=== PATIENT | male | born 1995 | race Caucasian/White ===

== ENCOUNTER 2017-12-06 09:42 | Emergency (ER) | payer SELFPAY ==
[~2017-12-06] VITALS: Ht 182.9 cm; Wt 84.1 kg
[2017-12-06 09:50] VITALS: BP 139/88; PULSE 80; TEMP 97.3
[2017-12-06] MEDS ORDERED: AMOXICILLIN 8751 TAB PO (10:03)
[2017-12-06] MEDS ORDERED: NORCO 325 MG-51 TAB PO (10:03)
== END 2017-12-06 10:14 | disposition home or self-care (01) ==
LOC: COL.ER 09:42
DX: K11.20 Sialoadenitis, unspecified (principal)

== ENCOUNTER 2018-11-16 19:09 | Emergency (ER) | payer SELFPAY ==
[~2018-11-16] VITALS: Ht 182.9 cm; Wt 83.2 kg
[~2018-11-16 19:09] MED LIST: AMOXICILLIN 8751 TAB PO; NORCO 325 MG-51 TAB PO
[2018-11-16 19:16] VITALS: TEMP 97.7
[2018-11-16 20:39] LABS: BASO # 0.1 (0.0-0.2); BASO % 0.7 % (0.0-2.0); EOS # 0.1 (0.0-0.7); EOS % 1.2 % (0-4.0); GRAN # 6.8 (1.4-6.5); GRAN % 78.5 % (42.2-75.2); HEMATOCRIT 48.8 % (42.0-52.0); HEMOGLOBIN 15.8 g/dl (13.5-18.0); LYMPH # 1.2 (1.2-3.4); MEAN CELL VOLUME 89 fl (80.0-100.0); MEAN CORPUSCULAR HEMOGLOBIN 29 pg (27.0-31.0); MEAN CORPUSCULAR HGB CONC 32 g/dl (33.0-37.0); MEAN PLATELET VOLUME 13.1 fl (7.4-10.4); MONO # 0.5 (0.1-0.6); MONO % 5.4 % (1.7-9.3); PLATELET COUNT 185 K/mm3 (130-400); RED BLOOD COUNT 5.47 M/mm3 (4.20-5.60); REDCELL DISTRIBUTION WIDTH-CV 12.4 % (11.5-14.5)
[2018-11-16 20:52] LABS: ALBUMIN 4.2 gm/dL (3.5-5.0); BILIRUBIN,TOTAL 0.9 mg/dL (0.0-1.0); C-REACTIVE PROTEIN 2.3 mg/dL (0.0-0.9); CALCIUM 9.1 mg/dL (8.4-10.2); CREATININE, serum 0.81 (0.66-1.25); POTASSIUM 3.8 mmol/L (3.4-5.0)
[2018-11-16] MEDS ORDERED: CEPHALEXIN500 M1 PO (21:09)
[2018-11-16 21:32] VITALS: BP 122/78; PULSE 78
== END 2018-11-16 21:33 | disposition home or self-care (01) ==
LOC: COL.ER 19:09
PROVIDERS: Emergency Medicine
DX: J02.9 Acute pharyngitis, unspecified (principal); R11.10 Vomiting, unspecified
CPT/HCPCS: J2405; J7030

== ENCOUNTER 2019-05-07 04:47 | Emergency (ER) | payer SELFPAY ==
[~2019-05-07] VITALS: Wt 90.9 kg
[~2019-05-07 04:47] MED LIST changes: +CEPHALEXIN500 M1 PO
[2019-05-07 05:05] LABS: BASO # 0.1 (0.0-0.2); BASO % 1.1 % (0.0-2.0); EOS # 0.2 (0.0-0.7); EOS % 2.3 % (0-4.0); GRAN # 4.6 (1.4-6.5); GRAN % 62.2 % (42.2-75.2); HEMATOCRIT 47.9 % (42.0-52.0); HEMOGLOBIN 15.9 g/dl (13.5-18.0); LYMPH % 26.6 % (20.0-51.0); MEAN CELL VOLUME 87 fl (80.0-100.0); MEAN CORPUSCULAR HEMOGLOBIN 29 pg (27.0-31.0); MEAN CORPUSCULAR HGB CONC 33 g/dl (33.0-37.0); MEAN PLATELET VOLUME 13.1 fl (7.4-10.4); MONO # 0.6 (0.1-0.6); MONO % 7.5 % (1.7-9.3); PLATELET COUNT 200 K/mm3 (130-400); RED BLOOD COUNT 5.51 M/mm3 (4.20-5.60); REDCELL DISTRIBUTION WIDTH-CV 12.4 % (11.5-14.5)
[2019-05-07 05:18] LABS: ALANINE AMINOTRANSFERASE 41 U/L (21-72); ALBUMIN 4.6 gm/dL (3.5-5.0); ALKALINE PHOSPHATASE 70 U/L (50-136); ANION GAP 11 mmol/L (7-16); AST,SGOT 25 U/L (15-37); BILIRUBIN,TOTAL 0.8 mg/dL (0.0-1.0); BLOOD UREA NITROGEN 13 mg/dL (9-20); C-REACTIVE PROTEIN < 0.5 mg/dL (0.0-0.9); CALCIUM 8.6 mg/dL (8.4-10.2); CARBON DIOXIDE 27 mmol/L (22-30); CHLORIDE 105 mmol/L (98-107); CREATININE, serum 0.75 (0.66-1.25); GLUCOSE 115 mg/dL (74-106); LIPASE 65 U/L (23-300); POTASSIUM 3.9 mmol/L (3.4-5.0); SODIUM 143 mmol/L (137-145)
[2019-05-07 06:09] LABS: COLLECTION METHOD CLEAN CATCH
[2019-05-07 06:14] LABS: MUCOUS Present /lpf; PH 7 (5-8); SQUAMOUS EPITHELIAL 0-2 /hpf; URINE APPEARANCE Clear; URINE BACTERIA None Seen /hpf; URINE BILIRUBIN Negative (NEGATIVE); URINE BLOOD Negative (NEGATIVE); URINE COLOR Yellow; URINE GLUCOSE Negative (NEGATIVE); URINE KETONE Negative (NEGATIVE); URINE LEUKOCYTE ESTERASE Negative (NEGATIVE); URINE NITRATE Negative (NEGATIVE); URINE PROTEIN(semi-quant) Negative (NEGATIVE); URINE UROBILINOGEN Negative (NEGATIVE)
[2019-05-07] MEDS ORDERED: ZOFRAN ODT4 MG PO (07:32)
[2019-05-07] MEDS ORDERED: PHENERGAN 25 TA25 MG PO (07:32)
[2019-05-07] MEDS ORDERED: AMOXICILLIN 50500 MG PO (07:32)
[2019-05-07 08:15] VITALS: BP 140/92; PULSE 89; TEMP 97.7
== END 2019-05-07 08:15 | disposition home or self-care (01) ==
LOC: COL.ER 04:47
PROVIDERS: Emergency Medicine
DX: K08.89 Other specified disorders of teeth and supporting structures (principal); R10.31 Right lower quadrant pain
CPT/HCPCS: J1885; J2405; J7030; Q9967

== ENCOUNTER 2019-05-07 21:02 | Emergency (ER) | payer SELFPAY ==
[~2019-05-07] VITALS: Ht 182.9 cm; Wt 88.2 kg
[~2019-05-07 21:02] MED LIST changes: +AMOXICILLIN 50500 MG PO; +PHENERGAN 25 TA25 MG PO; +ZOFRAN ODT4 MG PO
[2019-05-07 21:08] VITALS: BP 144/93; TEMP 97.8
[2019-05-07 22:30] VITALS: PULSE 80
== END 2019-05-07 22:30 | disposition home or self-care (01) ==
LOC: COL.ER 21:02
DX: K08.89 Other specified disorders of teeth and supporting structures (principal)

== ENCOUNTER 2019-06-03 02:35 | Emergency (ER) | payer SELFPAY ==
[~2019-06-03] VITALS: Ht 182.9 cm; Wt 81.8 kg
[2019-06-03 03:18] LABS: HEMATOCRIT 46.7 % (42.0-52.0); HEMOGLOBIN 15.4 g/dl (13.5-18.0); MEAN CELL VOLUME 88 fl (80.0-100.0); MEAN CORPUSCULAR HEMOGLOBIN 29 pg (27.0-31.0); MEAN CORPUSCULAR HGB CONC 33 g/dl (33.0-37.0); MEAN PLATELET VOLUME 13.3 fl (7.4-10.4); PLATELET COUNT 163 K/mm3 (130-400); RED BLOOD COUNT 5.31 M/mm3 (4.20-5.60); REDCELL DISTRIBUTION WIDTH-CV 12.6 % (11.5-14.5)
[2019-06-03 03:26] LABS: ALBUMIN 4.3 gm/dL (3.5-5.0); BILIRUBIN,TOTAL 1.1 mg/dL (0.0-1.0); CALCIUM 8.8 mg/dL (8.4-10.2); CREATININE, serum 0.69 (0.66-1.25); POTASSIUM 4.1 mmol/L (3.4-5.0); TOTAL PROTEIN 7.6 gm/dL (6.4-8.2)
[2019-06-03 03:46] LABS: BAND 17 % (0-10); EOSINOPHIL 1 % (0-4); LYMPHOCYTE 3 % (20.0-51.0); NEUTROPHILS 77 % (42.0-75.2)
[2019-06-03 03:47] LABS: PLATELET ESTIMATE NORMAL (NORMAL)
[2019-06-03 04:38] LABS: COLLECTION METHOD CLEAN CATCH
[2019-06-03 04:43] LABS: MUCOUS Present /lpf; PH 8 (5-8); SQUAMOUS EPITHELIAL None Seen /hpf; URINE APPEARANCE Clear; URINE BACTERIA None Seen /hpf; URINE BILIRUBIN Negative (NEGATIVE); URINE BLOOD Negative (NEGATIVE); URINE COLOR Yellow; URINE GLUCOSE Negative (NEGATIVE); URINE KETONE Negative (NEGATIVE); URINE LEUKOCYTE ESTERASE Negative (NEGATIVE); URINE NITRATE Negative (NEGATIVE); URINE PROTEIN(semi-quant) Negative (NEGATIVE); URINE RBC 0-2 /hpf; URINE UROBILINOGEN Negative (NEGATIVE)
[2019-06-03] MEDS ORDERED: FLAGYL500 MG PO (06:06)
[2019-06-03] MEDS ORDERED: CIPRO 500MG TA500 MG PO (06:06)
[2019-06-03 06:35] VITALS: BP 123/84; PULSE 118; TEMP 98.6
== END 2019-06-03 06:35 | disposition home or self-care (01) ==
LOC: COL.ER 02:35
PROVIDERS: Emergency Medicine
DX: K52.9 Noninfective gastroenteritis and colitis, unspecified (principal)
CPT/HCPCS: J2765; J3010; J7120; Q9967

== ENCOUNTER 2019-10-02 09:40 | Emergency (ER) | payer SELFPAY ==
[~2019-10-02] VITALS: Ht 193 cm; Wt 89.5 kg
[~2019-10-02 09:40] MED LIST changes: +CIPRO 500MG TA500 MG PO; +FLAGYL500 MG PO
[2019-10-02 09:48] VITALS: BP 134/78; TEMP 98.1
[2019-10-02] MEDS ORDERED: PROAIR HFA0.09 MG/AC IH (11:07)
[2019-10-02 11:16] VITALS: PULSE 86
== END 2019-10-02 11:17 | disposition home or self-care (01) ==
LOC: COL.ER 09:40
DX: J45.998 Other asthma (principal)

== ENCOUNTER 2019-12-14 11:09 | Emergency (ER) | payer BC ==
[~2019-12-14] VITALS: Ht 172.7 cm; Wt 79.5 kg
[~2019-12-14 11:09] MED LIST changes: +PROAIR HFA0.09 MG/AC IH
[2019-12-14 11:39] VITALS: TEMP 97.1
[2019-12-14 12:14] LABS: COLLECTION METHOD CLEAN CATCH
[2019-12-14 12:22] LABS: BASO # 0.1 (0.0-0.2); BASO % 0.8 % (0.0-2.0); EOS # 0.1 (0.0-0.7); EOS % 1.7 % (0-4.0); GRAN # 4.9 (1.4-6.5); GRAN % 67.3 % (42.2-75.2); HEMATOCRIT 44.9 % (42.0-52.0); HEMOGLOBIN 15.1 g/dl (13.5-18.0); LYMPH # 1.7 (1.2-3.4); LYMPH % 23.7 % (20.0-51.0); MEAN CELL VOLUME 87 fl (80.0-100.0); MEAN CORPUSCULAR HEMOGLOBIN 29 pg (27.0-31.0); MEAN CORPUSCULAR HGB CONC 34 g/dl (33.0-37.0); MEAN PLATELET VOLUME 13.3 fl (7.4-10.4); MONO # 0.5 (0.1-0.6); MONO % 6.2 % (1.7-9.3); PLATELET COUNT 170 K/mm3 (130-400); RED BLOOD COUNT 5.18 M/mm3 (4.20-5.60); REDCELL DISTRIBUTION WIDTH-CV 12.5 % (11.5-14.5)
[2019-12-14 12:26] LABS: MUCOUS Present /lpf; PH 6 (5-8); SQUAMOUS EPITHELIAL None Seen /hpf; URINE APPEARANCE Hazy; URINE BACTERIA None Seen /hpf; URINE BILIRUBIN Negative (NEGATIVE); URINE BLOOD 1+ (NEGATIVE); URINE COLOR Yellow; URINE GLUCOSE Negative (NEGATIVE); URINE KETONE Negative (NEGATIVE); URINE LEUKOCYTE ESTERASE Negative (NEGATIVE); URINE NITRATE Negative (NEGATIVE); URINE PROTEIN(semi-quant) Negative (NEGATIVE); URINE UROBILINOGEN Negative (NEGATIVE)
[2019-12-14 12:37] LABS: ALANINE AMINOTRANSFERASE 36 U/L (4-49); ALBUMIN 4.3 gm/dL (3.5-5.0); ALKALINE PHOSPHATASE 84 U/L (50-136); ANION GAP 8 mmol/L (7-16); AST,SGOT 29 U/L (15-37); BILIRUBIN,TOTAL 1.3 mg/dL (0.0-1.0); BLOOD UREA NITROGEN 17 mg/dL (9-20); CALCIUM 9.1 mg/dL (8.4-10.2); CARBON DIOXIDE 25 mmol/L (22-30); CHLORIDE 102 mmol/L (98-107); CREATININE, serum 0.73 (0.66-1.25); GLUCOSE 105 mg/dL (74-106); POTASSIUM 3.9 mmol/L (3.4-5.0); SODIUM 136 mmol/L (137-145); TOTAL PROTEIN 7.6 gm/dL (6.4-8.2)
[2019-12-14 13:02] LABS: C-REACTIVE PROTEIN < 0.5 mg/dL (0.0-0.9)
[2019-12-14 13:30] VITALS: BP 134/94; PULSE 81
== END 2019-12-14 13:40 | disposition home or self-care (01) ==
LOC: COL.ER 11:09
PROVIDERS: Physician Assistant
DX: R55 Syncope and collapse (principal)
CPT/HCPCS: J7030

== ENCOUNTER 2019-12-26 22:33 | Emergency (ER) | payer BC ==
[~2019-12-26] VITALS: Ht 172.7 cm; Wt 87.9 kg
[2019-12-26 23:09] VITALS: BP 134/83; TEMP 97.9
[2019-12-27 00:13] LABS: STREP SCREEN NEGATIVE
[2019-12-27] MEDS ORDERED: FLONASE NASAL S16 GM NS (00:19)
[2019-12-27 00:30] VITALS: PULSE 84
== END 2019-12-27 00:30 | disposition home or self-care (01) ==
LOC: COL.ER 22:33
PROVIDERS: Physician Assistant
DX: J02.9 Acute pharyngitis, unspecified (principal)

== ENCOUNTER 2020-02-28 21:13 | Emergency (ER) | payer BC ==
[~2020-02-28] VITALS: Ht 182.9 cm; Wt 81.8 kg
[~2020-02-28 21:13] MED LIST changes: +FLONASE NASAL S16 GM NS
[2020-02-28 21:19] VITALS: TEMP 97.7
[2020-02-28] MEDS ORDERED: PROAIR HFA0.09 MG/AC IH (22:15)
[2020-02-28] MEDS ORDERED: PREDNISONE20 MG PO (22:15)
[2020-02-28 22:45] VITALS: BP 128/79; PULSE 89
== END 2020-02-28 22:47 | disposition home or self-care (01) ==
LOC: COL.ER 21:13
DX: J45.909 Unspecified asthma, uncomplicated (principal); Z79.51 Long term (current) use of inhaled steroids
CPT/HCPCS: J7512

== ENCOUNTER 2020-08-01 12:14 | Emergency (ER) | payer BC ==
[~2020-08-01] VITALS: Ht 182.9 cm; Wt 72.7 kg
[~2020-08-01 12:14] MED LIST changes: +PREDNISONE20 MG PO
[2020-08-01 12:53] VITALS: BP 131/72; TEMP 98.4
[2020-08-01 14:48] VITALS: PULSE 97
== END 2020-08-01 14:49 | disposition home or self-care (01) ==
LOC: COL.ER 12:14
DX: B34.9 Viral infection, unspecified (principal); R00.0 Tachycardia, unspecified; J45.909 Unspecified asthma, uncomplicated; Z20.822 Contact with and (suspected) exposure to COVID-19

== ENCOUNTER 2020-12-02 19:54 | Emergency (ER) | payer BC ==
[~2020-12-02] VITALS: Ht 172.7 cm; Wt 81.8 kg
[2020-12-02 23:26] VITALS: BP 124/84; PULSE 87; TEMP 98.5
== END 2020-12-02 23:26 | disposition home or self-care (01) ==
LOC: COL.ER 19:54
DX: R11.2 Nausea with vomiting, unspecified (principal); J45.909 Unspecified asthma, uncomplicated; Z20.822 Contact with and (suspected) exposure to COVID-19; Z79.52 Long term (current) use of systemic steroids

== ENCOUNTER 2021-02-07 10:41 | Emergency (ER) | payer BC ==
[~2021-02-07] VITALS: Ht 182.9 cm; Wt 81.8 kg
[2021-02-07 10:59] VITALS: BP 140/93; PULSE 89; TEMP 97.7
[2021-02-07] MEDS ORDERED: TRIAM OI 15 0.025 TOP (11:26)
== END 2021-02-07 11:38 | disposition home or self-care (01) ==
LOC: COL.ER 10:41
DX: S30.863A Insect bite (nonvenomous) of scrotum and testes, initial encounter (principal); S70.362A Insect bite (nonvenomous), left thigh, initial encounter; S30.861A Insect bite (nonvenomous) of abdominal wall, initial encounter; R11.2 Nausea with vomiting, unspecified; J45.909 Unspecified asthma, uncomplicated; W57.XXXA Bitten or stung by nonvenomous insect and other nonvenomous arthropods, initial encounter

== ENCOUNTER 2021-04-11 12:55 | Emergency (ER) | payer BC ==
[~2021-04-11] VITALS: Ht 182.9 cm; Wt 90.9 kg
[~2021-04-11 12:55] MED LIST changes: +TRIAM OI 15 0.025 TOP
[2021-04-11 13:16] VITALS: BP 145/81; TEMP 98.3
[2021-04-11] MEDS ORDERED: ALBUTEROL0.83 MG/ML IH (15:29)
[2021-04-11] MEDS ORDERED: PREDNISONE20 MG PO (15:29)
[2021-04-11] MEDS ORDERED: PROAIR HFA0.09 MG/AC IH (15:29)
[2021-04-11 16:10] VITALS: PULSE 96
== END 2021-04-11 16:12 | disposition home or self-care (01) ==
LOC: COL.ER 12:55
DX: J45.901 Unspecified asthma with (acute) exacerbation (principal); Z20.822 Contact with and (suspected) exposure to COVID-19
CPT/HCPCS: J7512

== ENCOUNTER 2021-05-06 12:17 | Emergency (ER) | payer BC ==
[~2021-05-06] VITALS: Ht 182.9 cm; Wt 85.9 kg
[~2021-05-06 12:17] MED LIST changes: +ALBUTEROL0.83 MG/ML IH
[2021-05-06 12:49] VITALS: TEMP 98.7
[2021-05-06] MEDS ORDERED: PREDNISONE20 MG PO (14:43)
[2021-05-06 14:48] VITALS: BP 130/84; PULSE 84
== END 2021-05-06 14:50 | disposition home or self-care (01) ==
LOC: COL.ER 12:17
DX: J45.909 Unspecified asthma, uncomplicated (principal); Z20.822 Contact with and (suspected) exposure to COVID-19; Z79.899 Other long term (current) drug therapy
CPT/HCPCS: J7512

== ENCOUNTER 2024-02-24 10:43 | Emergency (ER) | payer BC ==
[~2024-02-24] VITALS: Ht 182.9 cm; Wt 87.3 kg
[2024-02-24 10:53] VITALS: TEMP 97.9
[2024-02-24] MEDS ORDERED: Ketorolac 15 MG/ML VIAL IV ONE ×2 (11:15→14:30)
[2024-02-24] MEDS ORDERED: Ondansetron 4 MG/2 ML VIAL IV ONE (11:15)
[2024-02-24] MEDS ORDERED: NS 1,000 ML IV ONE (11:15)
[2024-02-24 11:18] LABS: COLLECTION METHOD CLEAN CATCH
[2024-02-24 11:26] LABS: PH 8.5 (5.0-8.5); URINE APPEARANCE CLOUDY (CLEAR/HAZY); URINE BLOOD 3+ (NEGATIVE); URINE COLOR YELLOW (YELLOW); URINE GLUCOSE NEGATIVE (NEGATIVE); URINE KETONE NEGATIVE (NEGATIVE); URINE NITRATE NEGATIVE (NEGATIVE); URINE PROTEIN(semi-quant) 1+ (NEGATIVE)
[2024-02-24 11:39] LABS: HEMATOCRIT 46.8 % (42.0-52.0); HEMOGLOBIN 15.5 g/dl (13.5-18.0); MEAN CELL VOLUME 88 fl (80.0-100.0); MEAN CORPUSCULAR HEMOGLOBIN 29 pg (27-31); MEAN CORPUSCULAR HGB CONC 33 g/dl (33.0-37.0); MEAN PLATELET VOLUME 12.6 fl (7.4-10.4); PLATELET COUNT 195 K/mm3 (130-400); RED BLOOD COUNT 5.32 M/mm3 (4.20-5.60); REDCELL DISTRIBUTION WIDTH-CV 12.7 % (11.5-14.5)
[2024-02-24 12:02] LABS: BAND 1 % (0-10); EOSINOPHIL 3 % (0-4); LYMPHOCYTE 27 % (20.0-51.0); NEUTROPHILS 64 % (42.0-75.2); PLATELET ESTIMATE NORMAL (NORMAL)
[2024-02-24 12:10] LABS: ALBUMIN 3.9 g/dL (3.5-5.0); BILIRUBIN,TOTAL 1.5 mg/dL (0.2-1.2); CALCIUM 9.2 mg/dL (8.4-10.2); CREATININE, serum 0.8 mg/dL (0.72-1.25); POTASSIUM 4.3 mEq/L (3.5-4.5); TOTAL PROTEIN 7.1 g/dl (6.2-8.1)
[2024-02-24] MEDS ORDERED: Iodixanol-320 100 ML BOTTLE IV ONE (12:36)
[2024-02-24] MEDS ORDERED: NS 100 ML IV SCH (12:36)
[2024-02-24] MEDS ORDERED: FLOMAX 0.40.4 MG/CAP PO (15:16)
[2024-02-24 15:29] VITALS: BP 429/77; PULSE 72
[2024-02-24] MEDS ORDERED: NORCO 325 MG-51 TAB PO (15:29)
== END 2024-02-24 15:38 | disposition home or self-care (01) ==
LOC: COL.ER 10:43
PROVIDERS: Physician Assistant
DX: N13.2 Hydronephrosis with renal and ureteral calculous obstruction (principal)
CPT/HCPCS: J1885; J2405; J7030; Q9967

== ENCOUNTER 2024-02-24 21:03 | Emergency (ER) | payer BC ==
[~2024-02-24] VITALS: Ht 182.9 cm; Wt 87.3 kg
[~2024-02-24 21:03] MED LIST changes: +FLOMAX 0.40.4 MG/CAP PO
[2024-02-24 21:09] VITALS: TEMP 98.1
[2024-02-24] MEDS ORDERED: Morphine 4 MG/ML VIAL IV ONE (21:30)
[2024-02-24] MEDS ORDERED: LR 1,000 ML IV ONE (21:30)
[2024-02-24] MEDS ORDERED: Ondansetron 4 MG/2 ML VIAL IV ONE (21:30)
[2024-02-24] MEDS ORDERED: Ketorolac 15 MG/ML VIAL IV ONE (21:30)
[2024-02-24 21:36] LABS: HEMATOCRIT 43.5 % (42.0-52.0); HEMOGLOBIN 14.8 g/dl (13.5-18.0); MEAN CELL VOLUME 88 fl (80.0-100.0); MEAN CORPUSCULAR HEMOGLOBIN 30 pg (27-31); MEAN CORPUSCULAR HGB CONC 34 g/dl (33.0-37.0); MEAN PLATELET VOLUME 12.9 fl (7.4-10.4); PLATELET COUNT 200 K/mm3 (130-400); RED BLOOD COUNT 4.97 M/mm3 (4.20-5.60); REDCELL DISTRIBUTION WIDTH-CV 12.7 % (11.5-14.5)
[2024-02-24 21:48] LABS: CALCIUM 8.7 mg/dL (8.4-10.2); CREATININE, serum 0.83 mg/dL (0.72-1.25); POTASSIUM 3.9 mEq/L (3.5-4.5)
[2024-02-24 22:12] LABS: COLLECTION METHOD CLEAN CATCH
[2024-02-24 22:29] LABS: URINE APPEARANCE CLOUDY (CLEAR/HAZY); URINE BLOOD 3+ (NEGATIVE); URINE COLOR YELLOW (YELLOW); URINE GLUCOSE NEGATIVE (NEGATIVE); URINE KETONE NEGATIVE (NEGATIVE); URINE NITRATE NEGATIVE (NEGATIVE); URINE PROTEIN(semi-quant) NEGATIVE (NEGATIVE)
[2024-02-24 22:45] VITALS: BP 152/64; PULSE 79
== END 2024-02-24 22:45 | disposition home or self-care (01) ==
LOC: COL.ER 21:03
PROVIDERS: Emergency Medicine
DX: N13.2 Hydronephrosis with renal and ureteral calculous obstruction (principal)
CPT/HCPCS: J1885; J2270; J2405; J7120

== ENCOUNTER 2024-02-28 13:36 | Observation (INO) | payer BC ==
[~2024-02-28] VITALS: Ht 182.9 cm; Wt 86.9 kg
[2024-02-28] MEDS ORDERED: NS 1,000 ML IV ONE (15:45)
[2024-02-28] MEDS ORDERED: Ondansetron 4 MG/2 ML VIAL IV ONE ×2 (15:45→17:45)
[2024-02-28] MEDS ORDERED: Morphine 4 MG/ML VIAL IV PRN (15:45)
[2024-02-28 16:17] LABS: BASO # 0.1 K/mm3 (0.0-0.2); BASO % 0.8 % (0.0-2.0); EOS # 0.2 K/mm3 (0.0-0.7); EOS % 1.9 % (0.0-4.0); GRAN # 6.6 K/mm3 (1.4-6.5); GRAN % 72.2 % (42.2-75.2); HEMATOCRIT 47.1 % (42.0-52.0); LYMPH # 1.8 K/mm3 (1.2-3.4); LYMPH % 19.1 % (20.0-51.0); MEAN CELL VOLUME 87 fl (80.0-100.0); MEAN CORPUSCULAR HEMOGLOBIN 30 pg (27-31); MEAN CORPUSCULAR HGB CONC 34 g/dl (33.0-37.0); MEAN PLATELET VOLUME 13.2 fl (7.4-10.4); MONO # 0.5 K/mm3 (0.1-0.6); MONO % 5.9 % (1.7-9.3); PLATELET COUNT 211 K/mm3 (130-400); REDCELL DISTRIBUTION WIDTH-CV 12.5 % (11.5-14.5)
[2024-02-28 16:36] LABS: ALBUMIN 4.2 g/dL (3.5-5.0); BILIRUBIN,TOTAL 0.6 mg/dL (0.2-1.2); CALCIUM 9.4 mg/dL (8.4-10.2); CREATININE, serum 0.98 mg/dL (0.72-1.25); POTASSIUM 3.8 mEq/L (3.5-4.5); TOTAL PROTEIN 7.9 g/dl (6.2-8.1)
[2024-02-28 16:37] LABS: COLLECTION METHOD CLEAN CATCH
[2024-02-28 16:53] LABS: URINE COLOR Red (YELLOW)
[2024-02-28 16:54] LABS: URINE APPEARANCE Turbid (CLEAR/HAZY); URINE BLOOD 3+ (NEGATIVE); URINE GLUCOSE Negative (NEGATIVE); URINE KETONE Negative (NEGATIVE); URINE NITRATE Negative (NEGATIVE); URINE PROTEIN(semi-quant) 1+ (NEGATIVE); URINE UROBILINOGEN 0.2 E.U/dL (0.2-1.0)
[2024-02-28] MEDS ORDERED: HYDROmorphone 0.5 MG/0.5 ML SYRINGE IV ONE (17:45)
[2024-02-28] MEDS ORDERED: Acetaminophen 500 MG TAB PO PRN (18:45)
[2024-02-28] MEDS ORDERED: HYDROmorphone 0.5 MG/0.5 ML SYRINGE IV PRN (18:45)
[2024-02-28] MEDS ORDERED: Ondansetron 4 MG/2 ML VIAL IV PRN ×3 (18:45→22:15)
[2024-02-28] MEDS ORDERED: NS 1,000 ML IV SCH (18:45)
[2024-02-28] MEDS ORDERED: Albuterol 0.083% Neb Soln 2.5 MG/3 ML UD IH PRN (19:00)
[2024-02-28 19:48] VITALS: BP 149/85; PULSE 71; TEMP 97.9
--- NOTE | 2024-02-28 20:00 | NUR ---
PT ARRIVED TO ROOM 347 FROM ED WITH SISTER IN LAW AT BEDSIDE. HERE FOR KIDNEY STONE. PT IS KAZAKH SPEAKING, RELAY REPAIRER USED. PT IS A&O X4. VSS. STATES PAIN IS TOLERABLE TO FLANK, RATES IT 4-5/10. NS AT 150MLS/HR INFUSING TO LEFT AC. PT EDUCATED ON NPO STATUS. CALL LIGHT IN REACH
[2024-02-28 20:30] VITALS: BP_SYST 149
[2024-02-28] MEDS ORDERED: LR 1,000 ML IV SCH (20:30)
[2024-02-28] MEDS ORDERED: fentaNYL 50 MCG/ML 2 ML VIAL ONE (20:40)
[2024-02-28] MEDS ORDERED: Lidocaine PF 2% (20 MG/ML) 5 ML VIAL ONE (20:41)
[2024-02-28] MEDS ORDERED: NS 10 ML IV ONE (20:42)
[2024-02-28] MEDS ORDERED: Glycopyrrolate 0.2 MG/ML 1 ML VIAL ONE (20:42)
[2024-02-28] MEDS ORDERED: dexAMETHasone 10 MG/ML VIAL ONE (20:42)
[2024-02-28] MEDS ORDERED: Ondansetron 4 MG/2 ML VIAL ONE (20:42)
--- NOTE | 2024-02-28 20:45 | NUR ---
DR WEBER & PACU NURSE PREMA IN TALKING TO PT. ORGANIZATIONAL DEVELOPMENT CONSULTANT USED ID # [id number]. CONSENTS SIGNED & PT TAKEN DOWN TO OR BY PACU NURSE.
[2024-02-28] MEDS ORDERED: Naloxone 0.4 MG/ML VIAL IV PRN (21:00)
[2024-02-28] MEDS ORDERED: oxyCODONE 5 MG TAB PO PRN (21:00)
[2024-02-28] MEDS ORDERED: Hyoscyamine 0.125 MG Sublingual TAB SL PRN (21:00)
[2024-02-28] MEDS ORDERED: Acetaminophen 325 MG TAB PO PRN (21:00)
[2024-02-28] MEDS ORDERED: Iohexol 300 - 10 ML VIAL URETER -L ONE (21:15)
[2024-02-28] MEDS ORDERED: Furosemide 40 MG/4 ML VIAL ONE (21:22)
[2024-02-28] MEDS ORDERED: Ketorolac 30 MG/ML VIAL ONE (21:22)
[2024-02-28] MEDS ORDERED: Lidocaine 2% (20 MG/ML) 20 ML UROJET UR ONE (21:27)
[2024-02-28] MEDS ORDERED: Acetaminophen 500 MG TAB PO SCH (21:53)
[2024-02-28] MEDS ORDERED: HYDROmorphone 1 MG/1 ML SYRINGE [PACU/SDC ONLY] IV PRN (22:15)
[2024-02-28] MEDS ORDERED: hydrALAZINE 20 MG/ML 1 ML VIAL IV PRN (22:15)
[2024-02-28] MEDS ORDERED: fentaNYL 50 MCG/ML 1 ML SYRINGE/VIAL [PACU/SDC ONLY] IV PRN (22:15)
[2024-02-28] MEDS ORDERED: droPERidol 2.5 MG/ML 2 ML VIAL IV PRN (22:15)
[2024-02-28 22:25] VITALS: BP 129/78; PULSE 73
--- NOTE | 2024-02-28 22:25 | NUR ---
PT BACK TO ROOM 347 FROM PACU. BROADCAST JOURNALIST # [id number]. PT IS A&OX4. ON POSTOP VITALS, WNL. DENYING PAIN OR N/V. IVF INFUSING TO LEFT AC. GAVE PT SANDWICH BOX PER PT REQUEST. DENYING OTHER NEEDS. CALL LIGHT IN REACH
[2024-02-28 22:40] VITALS: BP 135/54; PULSE 83
[2024-02-28 22:55] VITALS: BP 138/91; PULSE 100
--- NOTE | 2024-02-28 23:00 | NUR ---
PT TOLERATING PO INTAKE OK. DENYING PAIN OR NEEDS AT THIS TIME
[2024-02-28 23:35] VITALS: BP 118/62; PULSE 72; TEMP 97.7
--- NOTE | 2024-02-28 23:35 | NUR ---
REVIEWED DISCHARGE EDUCATION WITH PT & HIS SISTER IN LAW USING THE TACO MAKER, ID #[id number]. GAVE PT [place] HANDOUTS. BOTH PT & FAMILY VOICED UNDERSTANDING. IV TO LEFT AC DISCONTINUED & PT ESCORTED OUT OF BUILDING VIA W/C AT 2335
[2024-02-29 00:29] VITALS: BP 125/86; PULSE 80; TEMP 97.7
[2024-02-29] MEDS ORDERED: Pantoprazole 40 MG in NS 10 ML IV SCH (09:00)
== END 2024-02-28 23:35 | disposition home or self-care (01) ==
LOC: COL.ER 13:36 → SURG 18:38
PROVIDERS: Physician Assistant; ADMIT Internal Medicine
DX: N20.1 Calculus of ureter (principal)
CPT/HCPCS: C1769; G0378; J0690; J0780; J1100; J1170; J1885; J1940; J2270; J2405; J2704; J3010; J7030; Q9967

== ENCOUNTER 2024-04-12 04:54 | Emergency (ER) | payer BC ==
[~2024-04-12] VITALS: Ht 182.9 cm; Wt 90.9 kg
[2024-04-12 04:59] VITALS: TEMP 97.5
[2024-04-12] MEDS ORDERED: methylPREDNISolone Sod Succ 125 MG/2 ML VIAL IV ONE (06:30)
[2024-04-12] MEDS ORDERED: diphenhydrAMINE 50 MG/ML 1 ML VIAL IV ONE (06:30)
[2024-04-12] MEDS ORDERED: PEPCID 20MG TAB20 MG PO (06:52)
[2024-04-12] MEDS ORDERED: HYDROCORTISO28.35 GM TOP (06:52)
[2024-04-12] MEDS ORDERED: PREDNISONE20 MG PO (06:52)
[2024-04-12] MEDS ORDERED: BENADRYL50 MG PO (06:52)
[2024-04-12 07:54] VITALS: BP 130/87; PULSE 81
== END 2024-04-12 07:54 | disposition home or self-care (01) ==
LOC: COL.ER 04:54
DX: L23.7 Allergic contact dermatitis due to plants, except food (principal)
CPT/HCPCS: J1200; J2919